=== PATIENT | male | born 1970 | race Caucasian/White ===

== ENCOUNTER 2025-03-24 16:39 | Emergency (ER) | payer MEDICAID ==
[~2025-03-24] VITALS: Ht 175.3 cm; Wt 100.7 kg
[2025-03-24 17:04] VITALS: BP 137/85; TEMP 98.4; O2SAT 100
== END 2025-03-24 19:12 | disposition home or self-care (01) ==
LOC: ER 16:46
DX: S67.192A Crushing injury of right middle finger, initial encounter (principal); M20.011 Mallet finger of right finger(s); E11.9 Type 2 diabetes mellitus without complications; W23.0XXA Caught, crushed, jammed, or pinched between moving objects, initial encounter; Y93.89 Activity, other specified; Y92.810 Car as the place of occurrence of the external cause; Y99.8 Other external cause status
CPT/HCPCS: 73130-TC